=== PATIENT | female | born 1950 | race Caucasian/White ===

== ENCOUNTER 2018-06-02 08:14 | Emergency (ER) | payer OTHER, MEDICARE ==
--- NOTE | 2018-06-02 09:20 | EDPHY ---
General Time Seen by Provider: 06/02/18 09:02 Narrative: CLINICAL IMPRESSION: Right thumb laceration ASSESSMENT/PLAN: 67-year-old female presents to the emergency department with a right thumb laceration sustained on the canine of her dog when she was trying to remove something from its mouth. The dog did not actually bite her. Tetanus up-to- date. Distal neurovascular exam intact. Three sutures placed as per chart notes below. Full range of motion, no concern for underlying fracture or foreign body. Wound care discussed, signs and symptoms of infection reviewed, antibiotics prescribed, warning signs return to ED sooner outlined and discharge. DIFFERENTIAL DIAGNOSIS: includes but not limited to laceration of tendon or vascular structure, underlying fracture, laceration with retained FB ED PROCECURES: Laceration Repair Verbal consent obtained by patient. Risks discussed, including but not limited to infection, pain, retained foreign body, need for additional repair, poor cosmetic result, tendon damage, nerve damage, poor wound healing, vascular damage. Alternatives to repair discussed. [place] protocol used to establish correct patient, procedure, equipment, security support analyst, and site. Anesthesia obtained by nerve block. Anesthetized with 0.5% bupivacaine without epinephrine at right thumb DIP. Laceration location right lateral distal thumb, length 1 cm, depth 2 mm, Repair type simple. Patient was prepped and draped in usual sterile fashion. Hemostasis achieved with direct pressure. Wound explored through full range of motion and entire depth of wound probed and visualized with gloved finger. No suspicion for nerve damage, tendon damage, underlying fracture, vascular damage, foreign body, or contamination. Area was cleansed with Shur-Clens and irrigated with sterile saline as per protocol. No foreign body or material removed. Repair method 4 0 Prolene simple interrupted sutures. Three sutures placed. Well aligned, closely approximated. wound was dressed with bacitracin and Band- Aid. Patient tolerated well with no immediate complications. Wound care: Clean and dry x 24 hours, gently clean with soap and water, cover with topical antibiotic ointment/bandage. Suture/Staple removal: 7 Days CHIEF COMPLAINT: Laceration HPI: 67-year-old female presents to the emergency department with a right handed thumb laceration sustained from the canine of her dog. Patient reports she was trying to pull something out for dog's mouth this morning while they were on a walk and the dog's canine slit her thumb. The dog did not actually bite her. She reports the dog was holding on to a frozen mouse. She has been unable to get the bleeding to stop. Tetanus up-to-date. She is left-hand dominant PAST MEDICAL HISTORY: None reported Pertinent Past Surgical History: None reported Social History: Otherwise healthy tetanus up-to-date REVIEW OF SYSTEMS: All other systems negative Constitutional: No fever, no chills Musculoskeletal: No deformity, no joint pain Skin: Right thumb laceration Neurological: No sensory loss or weakness, 2 point discrimination intact. PHYSICAL EXAM: General Appearance: Alert, oriented, appropriate for age, cooperative, NAD, well hydrated, non-toxic appearing, VSS, no hypoxia. Neurological: Alert and oriented x 3 Skin: 1 cm right thumb laceration just lateral to the nail. Actively bleeding. Distal 2 point discrimination intact Musculoskeletal: Full range of motion of the thumb in all fingers. MEDICAL DECISION MAKING: Patient was seen independently. Secondary supervising physician at time of evaluation was Dr. Booth. Diagnosis: Right thumb laceration. New, requires workup Summary: See assessment and plan for summary of ED visit Patient Progress stable for discharge. - History Smoking Status: Never smoked - Objective Vital Signs: Initial Vital Signs Temperature (C) 36.5 C 06/02/18 08:23 Heart Rate 78 06/02/18 08:23 Respiratory Rate 16 06/02/18 08:23 Blood Pressure 153/109 H 06/02/18 08:23 O2 Sat (%) 99 06/02/18 08:23 O2 Delivery Mode Room Air Allergies/Adverse Reactions: latex Allergy (Verified 06/02/18 08:22) Home Medications: Medication Instructions Recorded Amoxicillin/Clavulanate Pot 875 mg PO BID #14 tab 06/02/18 [Augmentin 875 mg tab] Departure - Departure Disposition: Home, Routine, Self-Care Condition: Good Instructions: Laceration (ED) Additional Instructions: DISCHARGE INSTRUCTIONS FROM YOUR DOCTOR Thank you for visiting our emergency department today. You were treated by a physician melter assistant today and your case was reviewed with our ED Attending physician. Please keep in mind that discharge from the emergency department does not mean that there is nothing wrong - it simply means that we have not identified an emergency condition that requires further evaluation or treatment in the hospital. You should always plan to follow up with primary care for re- evaluation of your condition in the next 2-3 days. If you have been referred to a specialist, please call as soon as possible (today or tomorrow) to schedule your follow up appointment at the appropriate time. PLEASE HAVE SUTURES/TRINIDAD REMOVED IN 7-10 DAYS. YOU CAN RETURN TO THE EMERGENCY DEPARTMENT OR YOUR PRIMARY CARE FOR SUTURE/STAPLE REMOVAL. AVOID SUBMERGING SUTURES/TRINIDAD UNDERWATER FOR PROLONGED PERIOD OF TIME UNTIL REMOVED. KEEP WOUND CLEAN AND DRY, COVER WITH ANTIBIOTIC OINTMENT AND BAND-AID. RETURN TO EMERGENCY DEPARTMENT FOR REDNESS, SWELLING, DISCHARGE, WARMTH TO THE SKIN, OR ANY OTHER CONCERNS FOR INFECTION. ANTIBIOTICS WERE PRESCRIBED GIVEN THAT THE CUT WAS SUSTAINED BY HER DOG'S MOUTH. PLEASE TAKE DIRECTED. FOLLOW UP WITH PRIMARY CARE FOR RECHECK. People present with illnesses and injuries in different ways, and it is always possible that we have missed something. You may always return for re-evaluation if symptoms worsen or if they are not improving or if you develop new/different symptoms. Again, thank you for choosing our emergency department. We hope that you feel better. Referrals: Alex Sexton [Primary Care Provider] - 2-3 days without fail Prescriptions: Amoxicillin/Clavulanate Pot [Augmentin 875 mg tab] 875 mg PO BID #14 tab
[2018-06-02 10:17] VITALS: BP 173/71
== END 2018-06-02 10:20 | disposition home or self-care (01) ==
PROC: 0HQFXZZ Repair Right Hand Skin, External Approach (ICD-10-PCS; principal; 2018-06-02)
DX: S61.011A Laceration without foreign body of right thumb without damage to nail, initial encounter (principal); W54.8XXA Other contact with dog, initial encounter; Y92.480 Sidewalk as the place of occurrence of the external cause; Y93.K1 Activity, walking an animal

== ENCOUNTER → 2018-07-19 | Outpatient (CLI) | payer OTHER, MEDICARE | LOC: BMCIMAGING 13:12 | PROVIDERS: ATTEND Nurse Practitioner Family | DX: Z12.31 Encounter for screening mammogram for malignant neoplasm of breast (principal) ==

== ENCOUNTER 2018-08-09 08:51 | Observation (INO) | payer OTHER, MEDICARE ==
[2018-08-09 09:33] LABS: PLATELET COUNT 185 10^3/uL (150-400)
--- NOTE | 2018-08-09 09:44 | EDPHY ---
H & P Time Seen by Provider: 08/09/18 09:01 HPI/ROS: Chief complaint. Chest pain HPI. 67-year-old female presents emergency department with 2 day history of chest discomfort. She went for a long bike ride on Thursday morning. She got home ate some lunch took a nap and then developed retrosternal chest discomfort. It has waxed and waned over the course of 2 days. She describes as pressure. No radiation. She does have a history of GERD but this is different. She notes continuing decreased energy and lightheadedness. She did start some supplements last week which may have irritated her stomach. Her symptoms are sometimes better with belching. Not significantly worse with exertion or breathing. She recently had a heart scan which shows increased risk factors for coronary artery disease and had some plaque and calcification. She has no personal history of diabetes or hypertension. No illness including fever cough. No unusual leg pain or swelling ROS 10 systems were reviewed and negative with the exception of the elements mentioned in the history of present illness Past Medical/Surgical History: GERD Family history father DE at age 53 Social History: , nonsmoker, no alcohol Smoking Status: Never smoked Physical Exam: General Appearance: Alert pleasant well-developed female mild distress vital signs are stable Eyes: Pupils equal and round no pallor or injection. ENT, Mouth: Mucous membranes are moist. Respiratory: There are no retractions, lungs are clear to auscultation. Cardiovascular: Regular rate and rhythm. Gastrointestinal: Abdomen is soft and nontender, no masses, bowel sounds normal. Neurological: Awake and alert, sensory and motor exams grossly normal. Skin: Warm and dry, no rashes. Musculoskeletal: Neck is supple nontender. Extremities symmetrical, full range of motion. Psychiatric: Patient is oriented X 3, there is no agitation. Constitutional: Initial Vital Signs Temperature (C) 36.6 C 08/09/18 08:51 Heart Rate 81 08/09/18 08:51 Respiratory Rate 16 08/09/18 08:51 Blood Pressure 161/93 H 08/09/18 08:51 O2 Sat (%) 96 08/09/18 08:51 O2 Delivery Mode Room Air Allergies/Adverse Reactions: latex Allergy (Verified 06/02/18 08:22) Home Medications: Medication Instructions Recorded Cholecalciferol Vit D3 [Vitamin D3 1,000 units PO DAILY 08/09/18 (*)] Fluticasone Nasal [Flonase Nasal 1 sprays NASAL DAILY 08/09/18 [place] (RX)] Herbals/Supplements -Info Only 1 ea PO DAILY 08/09/18 Ibuprofen [Motrin (*)] 200 mg PO DAILY PRN 08/09/18 Loratadine [Claritin 10 mg] 10 mg PO DAILY 08/09/18 Niacin ER [Niaspan 500 mg (*)] 500 mg PO DAILY 08/09/18 [place]-3 Fatty Acids [Fish Oil 1000 1,000 mg PO DAILY 08/09/18 mg (*)] Tears/Dextran 70/Hypromellose 1 drop EACHEYE Q2 PRN 08/09/18 [Natural Balance Tears (*)] Medical Decision Making - Diagnostics EKG Interpretation: EKG interpreted by me shows normal sinus rhythm normal interval and axis. QRS is normal slight ST elevation in lead V2. Otherwise no significant ST elevation or depression. No arrhythmia. The rate is 63 Imaging Results: Imaging Impressions Chest X-Ray 08/09/18 09:13 Impression: Negative portable chest. Chest x-ray interpreted by me shows no pneumonia. COPD appearance. Procedures: IV normal saline, monitor ED Course/Re-evaluation: On re-evaluation patient continues to have some chest pressure and discomfort. Patient and I discussed imaging lab EKG findings. We discussed treatment plan including recommendation for admission. She expresses understanding and agreement I consulted discussed the case with Dr. Estrella patient's PCP. He agrees to the admission Differential Diagnosis: Considered acute coronary syndrome, pneumonia, pneumothorax. Patient has risk factors for coronary artery disease including a recent abnormal heart scan showing plaque and putting her into an elevated risk category. She has family history. - Data Points Laboratory Results: Laboratory Results 08/09/18 09:09 08/09/18 09:09 08/09/18 08/09/18 08/09/18 10:00 09:09 09:09 WBC RBC Hgb Hct MCV MCH MCHC RDW Plt Count MPV Neut % (Auto) Lymph % (Auto) [place] % (Auto) Eos % (Auto) Baso % (Auto) Nucleat RBC Rel Count Absolute Neuts (auto) Absolute Lymphs (auto) Absolute Monos (auto) Absolute Eos (auto) Absolute Basos (auto) Absolute Nucleated RBC Immature Gran % Immature Gran # D-Dimer 0.30 ug/mLFEU ug/mLFEU (0.00-0.50) Sodium Potassium Chloride Carbon Dioxide Anion Gap BUN Creatinine Estimated GFR Glucose Calcium POC Troponin I 0.02 ng/mL ng/mL (0.00-0.08) NT-Pro-B Natriuret Pep Lipase 122 IU/L IU/L (23-300) 08/09/18 08/09/18 09:09 09:09 WBC 5.73 10^3/uL 10^3/uL (3.80-9.50) RBC 4.68 10^6/uL 10^6/uL (4.18-5.33) Hgb 14.8 g/dL g/dL (12.6-16.3) Hct 45.5 % % (38.0-47.0) MCV 97.2 fL fL (81.5-99.8) MCH 31.6 pg pg (27.9-34.1) MCHC 32.5 g/dL g/dL (32.4-36.7) RDW 12.3 % % (11.5-15.2) Plt Count 185 10^3/uL 10^3/uL (150-400) MPV 9.8 fL fL (8.7-11.7) Neut % (Auto) 65.0 % % (39.3-74.2) Lymph % (Auto) 20.6 % % (15.0-45.0) [place] % (Auto) 5.9 % % (4.5-13.0) Eos % (Auto) 7.2 % % (0.6-7.6) Baso % (Auto) 1.0 % % (0.3-1.7) Nucleat RBC Rel Count 0.0 % % (0.0-0.2) Absolute Neuts (auto) 3.72 10^3/uL 10^3/uL (1.70-6.50) Absolute Lymphs (auto) 1.18 10^3/uL 10^3/uL (1.00-3.00) Absolute Monos (auto) 0.34 10^3/uL 10^3/uL (0.30-0.80) Absolute Eos (auto) 0.41 10^3/uL H 10^3/uL (0.03-0.40) Absolute Basos (auto) 0.06 10^3/uL 10^3/uL (0.02-0.10) Absolute Nucleated RBC 0.00 10^3/uL 10^3/uL (0-0.01) Immature Gran % 0.3 % % (0.0-1.1) Immature Gran # 0.02 10^3/uL 10^3/uL (0.00-0.10) D-Dimer Sodium 138 mEq/L mEq/L (135-145) Potassium 3.8 mEq/L mEq/L (3.5-5.2) Chloride 103 mEq/L mEq/L (97-110) Carbon Dioxide 27 mEq/l mEq/l (22-31) Anion Gap 8 mEq/L mEq/L (6-14) BUN 18 mg/dL mg/dL (7-23) Creatinine 0.9 mg/dL mg/dL (0.6-1.0) Estimated GFR > 60 Glucose 76 mg/dL mg/dL (70-100) Calcium 9.4 mg/dL mg/dL (8.5-10.4) POC Troponin I NT-Pro-B Natriuret Pep 91 pg/mL pg/mL (0-125) Lipase Medications Given: Discontinued Medications Al Hydroxide/Mg Hydroxide (Maalox Susp) 30 ml PO ONCE ONE Stop: 08/09/18 11:08 Last Admin: 08/09/18 11:23 Dose: 30 ml Lidocaine (Lidocaine 2% Viscous) 15 ml PO ONCE ONE Stop: 08/09/18 11:08 Last Admin: 08/09/18 11:23 Dose: 15 ml Point of Care Test Results: Chemistry 08/09/18 10:00 POC Troponin I 0.02 ng/mL ng/mL (0.00-0.08) Departure - Departure Disposition: [facility] Inpatient Acute Clinical Impression: Chest pain Qualifiers: Chest pain type: unspecified Qualified Code(s): R07.9 - Chest pain, unspecified Condition: Fair
--- NOTE | 2018-08-09 09:57 | CPEKG ---
Test Reason : OPEN Blood Pressure : / mmHG Vent. Rate : 063 BPM Atrial Rate : 062 BPM P-R Int : 172 ms QRS Dur : 078 ms QT Int : 413 ms P-R-T Axes : 066 079 045 degrees QTc Int : [address] elevation, consider anterior injury Confirmed by Bam Rolle ([id number]) on 08/09/2018 9:57:38 AM Referred By: Bam Rolle Confirmed By:Bam Rolle
[2018-08-09] MEDS ORDERED: MAG HYDROX/AL HYDROX/SIMETH 30 ML UDCUP PO ONE (11:07)
[2018-08-09] MEDS ORDERED: LIDOCAINE 2% VISCOUS 15 ML UDCUP PO ONE (11:07)
[2018-08-09] MEDS ORDERED: ONDANSETRON 4 MG/2 ML VIAL IVP PRN (13:10)
[2018-08-09] MEDS ORDERED: ACETAMINOPHEN 325 MG TAB PO PRN (13:10)
[2018-08-09] MEDS ORDERED: ONDANSETRON DISINTEGRATING 4 MG TAB PO PRN (13:10)
--- NOTE | 2018-08-09 14:52 | GHP ---
[f rep st] HISTORY AND PHYSICAL DATE OF ADMISSION: 08/09/2018 ADMISSION DIAGNOSIS: Chest pain. PAST MEDICAL HISTORY: Positive for elevated coronary artery calcium score. PAST SURGICAL HISTORY: 1. Includes sinus surgery in July 2004. 2. Breast lumpectomy (benign) in 2002. FAMILY HISTORY: Daughter 29 years old, alive and well. Father , diagnosed with coronary art flora disease, hypertension. Son 31 years old, alive and well. Mother at 95 years old. Brot her alive, diagnosed with atrial fibrillation, hypertension, hyperlipidemia. 4 other brothers also a live and diagnosed with hypertension. SOCIAL HISTORY: Nonsmoker. Occasionally consumes alcoholic beverages. Moderate caffeine intake. E xercises most days per week. ALLERGIES: No known drug allergies. CURRENT MEDICATIONS: 1. Flonase. 2. Align. 3. Aged garlic extract 1200 mg p.o. twice daily. 4. Vitamin D3 2000 units p.o. daily. 5. [place]-3 fish oils 2000 mg p.o. daily. 6. Nutrigold MK-7 vitamin K2 100 mcg per day. HISTORY OF PRESENT ILLNESS: Andree is a 67-year-old female, who presented to the emergency department after experiencing chest discomfort, fatigue, and increased belching over the weekend. She recently had an heart scan done on July 21, 2002, which revealed an elevated coronary artery calci um score of 201.41. Given this positive calcium score, she decided to come to the emergency departme nt today for evaluation, given that her symptoms have lasted without relief for about 3 days. Andree r eports that over the weekend, she tried to participate in her normal activities including walking her dogs and being quite active; however, she was very limited by her fatigue and throughout all of her activities, she maintained a level of chest tightness, and noticed increased burping. She had troubl e sleeping day night and last night due to this discomfort and belching, and her also no ticed a change in her behavior, as well as increased belching. The patient does have a history of re flux and has previously taken PPIs; however, is not currently taking any. Evaluation in the Emergenc y Department revealed a chest x-ray, which was negative for pneumonia, EKG reveals sinus rhythm with ST elevation in V2, but otherwise no significant ST elevation or depression. Initial troponin is 0.0 2. D-dimer is 0.3. REVIEW OF SYSTEMS: GENERAL: Denies fevers, chills, headache. Endorses fatigue. HEENT: Denies sor e throat, sinus pressure, congestion, and change in vision. RESPIRATORY: Denies cough, wheeze, shor tness of breath. CARDIAC: Chest pain. Endorses midline substernal chest tightness. Denies palpita tions. Does recall an episode of dizziness over the weekend. GI: Endorses increased belching and p ossible reflux. Denies nausea, vomiting, or constipation, or diarrhea. SKIN: Denies itching, rash. EXTREMITIES: Denies swelling to her lower extremities. NEURO: Denies numbness, tingling, change in strength or sensation. EXAMINATION: GENERAL: Alert, oriented. VITALS: Blood pressure is a little bit on the elevated jaci e. Otherwise, vitals are normal. HEAD: Normocephalic, atraumatic. RESPIRATORY: Lungs clear to au scultation bilaterally. CV: S1, S2. Regular rate and rhythm. No murmurs, rubs, gallops. ABDOMEN: Soft, nontender, nondistended. Positive bowel sounds. EXTREMITIES: No peripheral edema. SKIN: Warm and dry. NEURO: Grossly intact. PSYCH: Mood and affect are full range. ASSESSMENT AND PLAN: 1. Chest pain. Given patient's elevated coronary artery calcium score of 201.42 as seen on recent _ heart scan in July of 2018, further workup is warranted given her current symptoms. I hav e consulted Cardiology (appreciate assistance) and will plan for a nuclear stress test. Troponin was negative earlier today. Will plan to repeat a second troponin this afternoon. 2. Elevated blood pressure, likely due to stress given current situation. Will continue to monitor and treat if systolic is above 180. 3. Disposition. Admit to observation for further workup of chest pain. /[id number]/MODL
--- NOTE | 2018-08-09 15:28 | GCON ---
[f rep st] CONSULTATION CARDIOLOGY CONSULTATION DATE OF CONSULTATION: 08/09/2018 REFERRING PHYSICIAN: Rubina Mccann NP REASON FOR CONSULTATION: We are asked by Rubina Mccann, nurse practitioner to evaluate the patient f or her chest discomfort. HISTORY OF PRESENT ILLNESS: The patient is a 67-year-old female with a recent diagnosis of coronary atherosclerosis based on a heart scan about 2 weeks ago. Her total score was approximately 201. She presents for chest tightness with associated burping. On Thursday, she had gone on a very long bike ride of 32 miles. After this, she felt a little fatigued and took a nap. Upon awakening, she had s ubsternal chest pressure with associated burping and a fatigue. Typically, she does not feel like th is post-exertion. Through the day, she continued to feel this pressure. At night, she was not able to sleep well when she had gotten up to get to the bathroom, which is not unusual for her, she felt t hat she was dizzy and had to hold onto the gonzalez to prevent falling. The next morning, she had gerard nued to feel tired and noted the ongoing chest tightness with burping. She took her dog for a walk, but had to turn around because she felt fatigued. Of note, she has recently started multiple supplem ents and wonders if she is having acid reflux associated with that. She has had previous EGDs that h ave diagnosed of mild GERD. She was started on vitamin K2, fish oil, Slo-Niacin, and vitamin D, whic h she has been taking for approximately a month, as well as garlic tabs. During her bike ride, she f elt well. She also does twice weekly CrossFit and feels well with that. OUTPATIENT MEDICATIONS: Listed as dextran tears, fish oil, niacin ER, ibuprofen, Cholecalciferol, Cl aritin, Flonase. ALLERGIES: To latex. FAMILY HISTORY: Mother at age 95. Father of an AL at age 53. Paternal uncle at age 65% of an AL. Paternal aunt of a CVA at age 76. She has a brother who is overweight, has atria l fibrillation, and drinks a fair amount of alcohol. Another brother has hypertension. SOCIAL HISTORY: Patient is a never smoker. She is . She reports typically 1 glass of wine n ightly. SURGICAL HISTORY: She has had 2 C sections. PAST MEDICAL HISTORY: Includes the elevated calcium score and GERD. REVIEW OF SYSTEMS: As per HPI. A complete 10-point review of systems was obtained and is negative, except for what is dictated. PHYSICAL EXAMINATION: VITAL SIGNS: BP of 151/83, heart rate 64, respirations 18, O2 saturation 100% on room air, temp of 98.1 degrees Fahrenheit. GENERAL: She is a very pleasant female in no apparen t distress. HEENT: Eyes are MERARI without scleral icterus. Head is normocephalic, atraumatic. Muco us membranes are moist. HEART: Regular rate and rhythm. There are no carotid bruits auscultated. LUNGS: Clear to auscultation. ABDOMEN: Soft with normoactive bowel sounds. SKIN: Warm and dry. PSYCH: Normal mood and affect. NEURO: Without any focal deficits detected. DATABASE: CBC with WBC 5.73, hemoglobin 14.8, hematocrit 45.5, platelet count of 185. D-dimer 0.3. Chemistry with sodium 138, potassium 3.8, chloride 103, CO2 27, BUN 18, creatinine 0.9, glucose 76. NT proBNP 91, lipase 122. Troponin 0.02. 12-lead ECG personally interpreted demonstrates sinus rhythm with LVH by voltage, J-point elevations versus minimal ST elevations in V1 and V2. Chest x-ray shows no acute cardiopulmonary process. I spoken with Rubina Mccann regarding patient. IMPRESSION AND PLAN: The patient is a 67-year-old female who presents with chest tightness with asso ciated burping. She has had relief of the chest tightness with a GI cocktail. She does have a new d iagnosis of coronary atherosclerosis based on elevated calcium score and has an abnormal ECG. Our pl an is to proceed to echo to rule out any structural anomalies or wall motion abnormality. If she rul ed out via enzymes, we will plan for nuclear stress test prior to discharge. /[id number]/MODL
[2018-08-09] MEDS: PANTOPRAZOLE SODIUM 40 MG VIAL IVP SCH (15:58)
[2018-08-09] MEDS ORDERED: TEARS/DEXTRAN 70/HYPROMELLOSE 15 ML OPHT.BTL EACHEYE PRN (16:47)
--- NOTE | 2018-08-09 20:21 | ECHO ---
[email or web address] [address] [address] Main: [phone] Echocardiography Examination Transthoracic Name: CRISTINA SHELL MR#: [id number] Study Date: 08/09/2018 Study Time: 03:01 PM Date of : 1950 Age: 67 year(s) Height: 167.6 cm (66 in.) Weight: 59.42 kg (131 lb.) BSA: 1.67 m2 Gender: Female Examination: Echo Contrast: Image Quality: Adequate Rhythm: Heart Rate: BP: 151 mmHg/83 mmHg Indication: Abnormal EKG Procedure Staff Referring Physician: [employer]: Dee Nino RDCS Reading Physician: Morro Finch MD Requesting Provider: Ordering Physician: Abby Martínez Indication: Abnormal EKG Measurements Chambers AV/MV Label Value Normal Value Label Value Normal Value LVDd, 2D 4 cm (3.9cm - 5.3cm) AV PGmean 3 mmHg LVDs, 2D 2.1 cm (2.1cm - 4cm) AV Vmax 1.32 m/s IVSd, 2D 0.9 cm (0.6cm - 1.1cm) MV E Vmax 1.01 m/s LVPWd, 2D 0.9 cm MV A Vmax 0.76 m/s LVEF, 2D 78 % (54% - 74%) MV E/A 1.33 LA Volume, BP 39 ml (22ml - 52ml) MV E/E' lateral 12.1 LADs, 2D 3.3 cm (2.7cm - 3.8cm) MV E/E' septal 13.4 (0.45 - 1.25) LAESV index, BP 23.4 ml/m2 MV E' septal 0.08 m/s Additional Vessels MV E' lateral 0.08 m/s Label Value Normal Value MV E/E' mean 12.62 AoAsc 3 cm MV E' mean 0.08 m/s AoRoot, MM 2.8 cm (2.2cm - 3.7cm) Conclusions (1) Left ventricular systolic ejection fraction was normal (65-70%) - normal wall motion (2) Normal RV size and function (3) Normal atrial dimensions (4) Mild MR Patient: CRISTINA SHELL Study Date: 08/09/2018 Page 1 of 2 03:01 PM (5) Trileraflet aortic valve without sclerosis or insufficiency (6) Trivial TR - RVSP was normal (7) Normal ascending aortic dimensions (8) No pericardial effusion Findings Left Ventricle: Left ventricle is normal in size. Normal global systolic left ventricular function. EF range is estimated at 65 % - 70 %. Left ventricle wall thickness is normal. There are no regional wall motion abnormalities. Left ventricular diastolic function parameters are normal. IVS: The septum is intact. Right Ventricle: Normal size right ventricle. Right ventricular systolic function is normal. Left Atrium: The left atrium is normal in size. IAS: Normal appearing atrial septum. Right Atrium: The right atrium is normal in size. Mitral Valve: Mitral valve appears structurally normal. Mild mitral regurgitation. No mitral valve stenosis. Aortic Valve: Aortic leaflets exhibit normal cuspal separation. No aortic valve regurgitation. There is no aortic stenosis. The aortic valve is trileaflet. Tricuspid Valve: Tricuspid valve leaflets are normal in appearance and function. Trivial tricuspid regurgitation. No tricuspid valve stenosis. Pulmonary artery pressure normal. Pulmonic Valve: Pulmonic leaflets exhibit normal cuspal separation. No pulmonic valve regurgitation is evident. There is no pulmonic valve stenosis. Aorta: The aorta is normal. The aortic root size in M-mode measures 2.8 cm. The ascending aorta measures 3.0 cm. Aorta Measurements AoRoot, MM is 2.8 cm. IVC: The inferior vena cava is normal in size and course. Pericardium: No pericardial effusion. No pleural effusion present. Exam Details Procedure Ordered: Echo Procedure Status: Routine study Image Quality: Adequate Facility Location: Cardiac Echo 1 (No Signature Object) Patient: CRISTINA SHELL Study Date: 08/09/2018 Page 2 of 2 03:01 PM [id number]
[2018-08-10] MEDS: PANTOPRAZOLE SODIUM 40 MG VIAL IVP SCH (08:55)
[2018-08-10] MEDS ORDERED: FLUTICASONE NASAL 120 SPRAYS/16 GM MDI EACHNARE SCH (09:00)
--- NOTE | 2018-08-10 09:31 | SOAPPROG ---
IVY Progress Note Assessment/Plan: Assessment: 67yo female with h/o elevated coronary artery calcium score ( 204.24 on EBCT 07/2018) and GERD currently off PPI who presented with chest pressure lasting approx 3 days with one episode of dizziness. Chest pressure relieved somewhat in ED by GI cocktail, trops negative, EKG with some slight changes. Given elevated calcium score, further cardiac workup warranted. Plan: Chest pain: echo yesterday looked good, NL EF, mild MR, NL RVSP. Plan for nuc stress test this AM and if NL will d/c home on PPI. GERD: PPI Dispo: likely home this afternoon if stress test unremarkable 08/10/18 09:27 Subjective: Andree is resting in her room this morning. Says she feels much better this morning and attributes this to restarting the PPI. Objective: Vital Signs Temp Pulse Resp BP Pulse Ox 36.8 C 76 10 L 127/93 H 98 08/10/18 07:12 08/10/18 07:12 08/10/18 07:12 08/10/18 07:12 08/10/18 07:12 08/09/18 08/10/18 08/11/18 05:59 05:59 05:59 Intake Total 500 Balance 500 Gen- alert, oriented, vitals stable Resp-LCTAB, no wheezing, rhonchi, rales CV- S1S2, RRR, no murmurs, rubs, gallops Neuro- grossly intact Skin- warm and dry ICD10 Worksheet Patient Problems: Problems Problem Status Onset Chest pain Acute
[2018-08-10] MEDS ORDERED: REGADENOSON 0.4 MG/5 ML SYR IVP ONE (10:54)
--- NOTE | 2018-08-10 12:22 | PDCARST ---
CAR Stress Test Results Type of Stress Test: Nuclear TM stress test Indication: cp Description of Procedure: After informed consent was obtained, pt was exercised according to Juan Protocol. Monitoring was performed with standard stress electric switch tester electrode placement. Vital signs were monitored according to protocol throughout the procedure. STRESS EKG AND HEMODYNAMIC DATA. Exercise time: 9 min. This is equivalent to: 10 METS. Resting heart rate: 66 bpm. Resting blood pressure: 120/64 mmHg. Resting O2 saturation: 98 %. Peak heart rate: 137 bpm. This is 88 % of age predicted maximum heart rate response. Peak blood pressure: 216/60 mmHg. Exercise O2: 98 %. Arrhythmias: PVC couplets (2) in stage 2, occasional PVC singles and PACs. Reason for termination: The test was stopped due to achieving goal heart rate . Symptoms : The patient experienced no typical symptoms of angina during stress or recovery. STRESS TEST ANALYSIS. Baseline ECG: SR. Stress ECG: Sinus tach. No exercise induced ischemic ECG changes. Rhythm: Mild-mod PVC burden and occasional PACs noted during exercise and recovery. Blood pressure: Normal resting blood pressure and hypertensive response to exercise. Exercise tolerance: The patient has normal exercise tolerance adjusted for age and gender. Symptoms: No exercise induced symptoms. Impression: Stress ECG is negative for ischemia. The Whyte Treadmill Score is + 9 consistent with low cardiovascular risk (<1% annual mortality). Hypertensive response to exertion. Exertional PVCs. Await nuclear imaging. Conclusion: Unremarkable Stress except for exertional hypertension and PVCs. Await nuclear images.
[2018-08-10 12:24] VITALS: BP 123/81
--- NOTE | 2018-08-10 15:47 | ASDISCHSUM ---
Discharge Information Plan Status:Home with No Needs Medically Cleared to Leave:08/10/2018 Discharge Date:08/10/2018 CM D/C Disposition:Home, Routine, Self-Care ADT D/C Disposition:Home, Routine, Self-Care Projected Discharge Date:08/10/2018 Transportation at D/C: Discharge Delay Reason: Follow-Up Date:08/10/2018 Discharge Slot: Final Diagnosis: Placement Information Patient Contact Information Contact Name:JOSE Relationship: Address:[address] [place] [address] Work Phone: [place] [facility] [place] Phone: [facility]/Zip Code:[place] [address] Email: Financial Information Financial Class:Medicare Primary Plan Desc:MEDICARE OUTPATIENT Primary Plan Number:[id number] Secondary Plan Desc:[employer]/MDR SUPPLEMENT Secondary Plan Number:[id number] Assessment Information LACE LACE Length of stay for Answers: 1 day current admission Acuity / Level of Answers: No Care: Did the patient have an inpatient admission? # of Emergency department Answers: 1-2 visits in the last 6 months Score: 2 Date Signed: 08/10/2018 03:46 PM Electronically Signed By:Heather East RN Intervention Information Intervention Type:*Incorrect Registration Date of Service:08/09/2018 03:23 PM Patient Type:Inpatient Staff Member:Funmi Rich Hours: Discipline: Severity: Comment: Intervention Type:*MP-Signed Date of Service:08/10/2018 02:30 PM Patient Type:Observation Staff Member:Elvie Zamudio Hours: Discipline: Severity: Comment:
--- NOTE | 2018-08-10 19:08 | GDS ---
[f rep st] DISCHARGE SUMMARY PRIMARY DIAGNOSIS: Chest pain. HOSPITAL COURSE: The patient is a 67-year-[facility]-day history of chest discomfort with increased belching and 1 episode of dizzin ess over the weekend. She recently had an EBCT heart scan done as an outpatient which revealed a cor onary artery calcium score of 204.24, indicating a higher risk for a female her age. In the emergenc y department, troponins were negative. EKG did show slight ST elevation in V2 but was otherwise norm al. Chest x-ray was negative for acute pneumonia. D-dimer was negative. Given her elevated coronar y artery calcium score as seen on the EBCT heart scan, further cardiac workup was warranted. Echocar diogram was normal and revealed mild mitral regurgitation and an ejection fraction of 65% to 70% with a normal right ventricular systolic pressure. Nuclear stress test was also performed and revealed n o evidence of stress-induced ischemia or myocardial infarction. Calculated left ventricular ejection fraction was 70%, though the patient did have exertional hypertension and PVCs. After discussion [facility], we will plan to have her monitor her blood pressure before and after working out and c an treat for exercise-induced hypertension if indicated by consistently elevated blood pressures with exercise. We will plan to keep her on a PPI, as this appears to be related to untreated reflux, and will follow up as an outpatient. DISCHARGE MEDICATIONS: Include Prilosec 20 mg p.o. daily, Flonase 1 spray intranasally daily, Natura l Balance Tears 1 drop each eye p.r.n. irritated eyes, omega-3 fish oil 1000 mg p.o. daily, niacin 50 0 mg p.o. daily, Motrin 200 mg p.o. daily p.r.n., vitamin D3 1000 units p.o. daily, Claritin 10 mg p. o. daily, and multivitamin 1 tablet p.o. daily. Patient will plan to follow up with her primary care provider as an outpatient. /[id number]/MODL
== END 2018-08-10 15:50 | disposition home or self-care (01) ==
LOC: INTOOBSV 11:15 → F2W 12:15
PROVIDERS: ADMIT Internal Medicine; ATTEND Internal Medicine
DX: R07.9 Chest pain, unspecified (principal); R93.1 Abnormal findings on diagnostic imaging of heart and coronary circulation; K21.9 Gastro-esophageal reflux disease without esophagitis
CPT/HCPCS: 71045; 78452; 93005; 93017; 93306; 96374; 96376; 99285; A9500; G0378; 84484-ER; J2785